=== PATIENT | female | born 1950 | race Caucasian/White ===

== ENCOUNTER 2017-02-12 13:18 | Emergency (ER) | payer MEDICARE ==
[~2017-02-12] VITALS: Ht 162.6 cm; Wt 63.8 kg
[~2017-02-12 13:18] MED LIST: ALBU18HF INH; ASPI325T4 PO; ATOR80TA PO; BENZ100C PO; BUSP10TA PO; CITA10TA8 PO; HYDR25TA6 PO; K-DUR PO; METO25TA35 PO; MONT10TA9 PO; POTASSIUM CHLORIDE PO; ZONI100C2 PO; ZONI50CA2 PO; [UNRECOGNIZED DRUG - OTHER] PO
[2017-02-12 14:26] VITALS: BP 105/55
== END 2017-02-12 14:28 | disposition home or self-care (01) ==
LOC: ED 14:22
DX: R56.9 Unspecified convulsions (principal); I12.9 Hypertensive chronic kidney disease with stage 1 through stage 4 chronic kidney disease, or unspecified chronic kidney disease; J44.9 Chronic obstructive pulmonary disease, unspecified; Z90.49 Acquired absence of other specified parts of digestive tract; I25.810 Atherosclerosis of coronary artery bypass graft(s) without angina pectoris; J45.909 Unspecified asthma, uncomplicated
CPT/HCPCS: 99283

== ENCOUNTER 2017-04-16 13:22 | Inpatient (IN) | payer MEDICARE ==
[~2017-04-16] VITALS: Ht 162.6 cm; Wt 65.3 kg
[2017-04-16] MEDS ORDERED: DONE5TAB14 PO (13:44)
[2017-04-16] MEDS ORDERED: LAMO25TA PO (13:44)
[2017-04-16] MEDS ORDERED: HYDR25TA6 PO (13:44)
[2017-04-16] MEDS ORDERED: BUSP10TA PO (13:44)
[2017-04-16] MEDS ORDERED: METO25TA35 PO (13:44)
[2017-04-16] MEDS ORDERED: DIPHENHYDRAMINE 50 MG/ML, 1ML ONE (13:51)
[2017-04-16] MEDS ORDERED: MORPHINE SULFATE 4 MG/ML, 1ML ONE (13:51)
[2017-04-16] MEDS ORDERED: DIPHENHYDRAMINE 50 MG/ML, 1ML IVPush ONE (14:00)
[2017-04-16] MEDS ORDERED: SODIUM CHLORIDE FLUSH 10ML SYR IVF ONE (14:00)
[2017-04-16] MEDS ORDERED: SODIUM CHLORIDE 0.9% 1,000ML IVBOLUS ONE (14:00)
[2017-04-16] MEDS: MORPHINE SULFATE 4 MG/ML, 1ML IVPush PRN ×3 (14:18→21:46)
[2017-04-16 14:21] LABS: BLOOD UREA NITROGEN 14 mg/dL (7-18)
[2017-04-16 14:26] LABS: ASPARTATE AMINO TRANSFERASE 17 U/L (15-37)
[2017-04-16 14:30] LABS: IS PT STATUS REG ER OR PRE ER? YES
[2017-04-16] MEDS ORDERED: OMNIPAQUE 350 MG/ML, 100ML BOTTLE ONE (16:08)
[2017-04-16] MEDS ORDERED: BISACODYL 10 MG SUPP PR PRN (16:30)
[2017-04-16] MEDS ORDERED: ONDANSETRON 2MG/ML, 2ML IVPush PRN (16:30)
[2017-04-16 20:00] VITALS: BP 95/59
[2017-04-16] MEDS: POTASSIUM CHLORIDE 20 MEQ in LACTATED RINGERS 1,000 ML IV SCH (21:46)
[2017-04-16] MEDS: DONEPEZIL 5 MG TABLET PO SCH (21:47)
[2017-04-16] MEDS: ATORVASTATIN 80 MG TABLET PO SCH (21:48)
[2017-04-16] MEDS: LAMOTRIGINE 25 MG TABLET PO SCH (21:48)
[2017-04-16] MEDS: ACETAMINOPHEN 325 MG TABLET PO PRN (22:08)
[2017-04-17 02:00] VITALS: BP 111/67
[2017-04-17 06:47] VITALS: BP 103/61
[2017-04-17] MEDS: POTASSIUM CHLORIDE 20 MEQ in LACTATED RINGERS 1,000 ML IV SCH (08:33)
[2017-04-17] MEDS: LAMOTRIGINE 25 MG TABLET PO SCH ×2 (08:33→20:37)
[2017-04-17] MEDS: CITALOPRAM 10 MG TABLET PO SCH (08:33)
[2017-04-17] MEDS: METOPROLOL TARTRATE 25 MG TABLET PO SCH (08:33)
[2017-04-17] MEDS: HYDROCHLOROTHIAZIDE 25 MG TABLET PO SCH (08:34)
[2017-04-17] MEDS: morphine SULFATE 10 MG/ML, 1ML IVPush PRN (12:42)
[2017-04-17 14:49] VITALS: BP 97/58
[2017-04-17 20:00] VITALS: BP 99/63
[2017-04-17] MEDS: MONTELUKAST 10 MG TABLET PO SCH (20:37)
[2017-04-17] MEDS: DONEPEZIL 5 MG TABLET PO SCH (20:37)
[2017-04-17] MEDS: ATORVASTATIN 80 MG TABLET PO SCH (20:37)
[2017-04-18 02:00] VITALS: BP 109/70
[2017-04-18 07:22] VITALS: BP 99/59
[2017-04-18] MEDS: CITALOPRAM 10 MG TABLET PO SCH (08:02)
[2017-04-18] MEDS: LAMOTRIGINE 25 MG TABLET PO SCH ×2 (08:02→19:51)
[2017-04-18] MEDS: METOPROLOL TARTRATE 25 MG TABLET PO SCH (08:02)
[2017-04-18] MEDS: HYDROCHLOROTHIAZIDE 25 MG TABLET PO SCH (08:02)
[2017-04-18] MEDS ORDERED: FENTANYL PF 100 MCG/2ML ONE ×4 (10:27→12:08)
[2017-04-18] MEDS ORDERED: PROPOFOL 10 MG/ML, 20ML ONE (10:33)
[2017-04-18] MEDS ORDERED: METOPROLOL 1 MG/ML, 5ML ONE (10:33)
[2017-04-18] MEDS ORDERED: CEFAZOLIN 1,000 MG ONE (10:33)
[2017-04-18] MEDS ORDERED: ONDANSETRON 2MG/ML, 2ML ONE (10:33)
[2017-04-18] MEDS ORDERED: MIDAZOLAM 1 MG/ML, 5ML IV PRN (11:00)
[2017-04-18] MEDS ORDERED: LABETALOL 5MG/ML, 20ML IV PRN (11:00)
[2017-04-18] MEDS ORDERED: OXYcodone 5 MG/5 ML ORAL.SOL UDC PO PRN (11:00)
[2017-04-18] MEDS ORDERED: ONDANSETRON 2MG/ML, 2ML IVPush PRN (11:00)
[2017-04-18] MEDS ORDERED: OXYcodone 5 MG/5 ML ORAL.SOL UDC ONE (11:32)
[2017-04-18] MEDS: FENTANYL PF 100 MCG/2ML IV PRN ×4 (11:35→12:16)
[2017-04-18] MEDS ORDERED: ACETAMINOPHEN 650 MG/20.3 ML UDC ONE (11:42)
[2017-04-18] MEDS ORDERED: HYDROmorphone 1 MG/ML, 1ML ONE (11:42)
[2017-04-18] MEDS: ACETAMINOPHEN 325 MG TABLET PO PRN (11:44)
[2017-04-18] MEDS: HYDROmorphone 1 MG/ML, 1ML IV PRN ×3 (11:48→12:10)
[2017-04-18 13:52] VITALS: BP 136/75
[2017-04-18] MEDS: morphine SULFATE 10 MG/ML, 1ML IVPush PRN (18:27)
[2017-04-18 19:09] VITALS: BP 117/71
[2017-04-18] MEDS: ATORVASTATIN 80 MG TABLET PO SCH (19:51)
[2017-04-18] MEDS: CEFAZOLIN PMX 1GM/50ML 50 ML IV SCH (19:51)
[2017-04-18] MEDS: DONEPEZIL 5 MG TABLET PO SCH (19:51)
[2017-04-18] MEDS: MONTELUKAST 10 MG TABLET PO SCH (19:51)
[2017-04-19 00:30] VITALS: BP 108/62
[2017-04-19] MEDS: morphine SULFATE 10 MG/ML, 1ML IVPush PRN ×3 (01:03→10:32)
[2017-04-19] MEDS: CEFAZOLIN PMX 1GM/50ML 50 ML IV SCH ×2 (03:51→12:30)
[2017-04-19] MEDS ORDERED: MORPHINE SULFATE 4 MG/ML, 1ML ONE (05:41)
[2017-04-19 06:55] VITALS: BP 115/66
[2017-04-19] MEDS: LAMOTRIGINE 25 MG TABLET PO SCH ×2 (08:46→20:51)
[2017-04-19] MEDS: DOCUSATE 100 MG CAPSULE PO SCH ×2 (08:46→20:51)
[2017-04-19] MEDS: HYDROCHLOROTHIAZIDE 25 MG TABLET PO SCH (08:47)
[2017-04-19] MEDS: CITALOPRAM 10 MG TABLET PO SCH (08:47)
[2017-04-19] MEDS: METOPROLOL TARTRATE 25 MG TABLET PO SCH (08:47)
[2017-04-19 12:45] VITALS: BP 103/61
[2017-04-19 18:46] VITALS: BP 110/64
[2017-04-19] MEDS: DONEPEZIL 5 MG TABLET PO SCH (20:51)
[2017-04-19] MEDS: ATORVASTATIN 80 MG TABLET PO SCH (20:52)
[2017-04-19] MEDS: MONTELUKAST 10 MG TABLET PO SCH (20:52)
[2017-04-19] MEDS ORDERED: ONDANSETRON 2MG/ML, 2ML IVPush PRN (22:30)
[2017-04-19] MEDS ORDERED: BISACODYL 10 MG SUPP PR PRN (22:30)
[2017-04-20 01:52] VITALS: BP 103/57
[2017-04-20 05:48] LABS: BLOOD UREA NITROGEN 8 mg/dL (7-18)
[2017-04-20 07:10] VITALS: BP 114/64
[2017-04-20] MEDS: DOCUSATE 100 MG CAPSULE PO SCH ×2 (08:45→19:53)
[2017-04-20] MEDS: LAMOTRIGINE 25 MG TABLET PO SCH ×2 (08:46→19:53)
[2017-04-20] MEDS: METOPROLOL TARTRATE 25 MG TABLET PO SCH (08:46)
[2017-04-20] MEDS: POTASSIUM CHLORIDE 20 MEQ TAB.ER.PRT PO SCH ×2 (08:46→16:45)
[2017-04-20] MEDS: HYDROCHLOROTHIAZIDE 25 MG TABLET PO SCH (08:46)
[2017-04-20] MEDS: CITALOPRAM 10 MG TABLET PO SCH (08:46)
[2017-04-20 13:07] VITALS: BP 103/63
[2017-04-20] MEDS ORDERED: MAGNESIUM CITRATE 300ML ORAL SOL PO ONE (13:30)
[2017-04-20] MEDS ORDERED: POLYETHYLENE GLYCOL 17 GM PACKET PO PRN (13:30)
[2017-04-20] MEDS ORDERED: MAGNESIUM CITRATE 300ML ORAL SOL PO PRN (14:30)
[2017-04-20 18:48] VITALS: BP 107/63
[2017-04-20] MEDS: MONTELUKAST 10 MG TABLET PO SCH (19:53)
[2017-04-20] MEDS: DONEPEZIL 5 MG TABLET PO SCH (19:53)
[2017-04-20] MEDS: ATORVASTATIN 80 MG TABLET PO SCH (19:53)
[2017-04-21 01:01] VITALS: BP 137/74
[2017-04-21 07:32] VITALS: BP 103/64
[2017-04-21] MEDS: CITALOPRAM 10 MG TABLET PO SCH (09:00)
[2017-04-21] MEDS: HYDROCHLOROTHIAZIDE 25 MG TABLET PO SCH (09:00)
[2017-04-21] MEDS: METOPROLOL TARTRATE 25 MG TABLET PO SCH (09:00)
[2017-04-21] MEDS: LAMOTRIGINE 25 MG TABLET PO SCH ×2 (09:00→21:35)
[2017-04-21] MEDS: DOCUSATE 100 MG CAPSULE PO SCH ×2 (09:00→21:36)
[2017-04-21 14:23] VITALS: BP 102/58
[2017-04-21 19:55] VITALS: BP 107/63
[2017-04-21] MEDS: ATORVASTATIN 80 MG TABLET PO SCH (21:00)
[2017-04-21] MEDS: DONEPEZIL 5 MG TABLET PO SCH (21:34)
[2017-04-21] MEDS: MONTELUKAST 10 MG TABLET PO SCH (21:35)
[2017-04-22 02:55] VITALS: BP 107/64
[2017-04-22 06:28] VITALS: BP 134/73
[2017-04-22 06:58] VITALS: BP 107/66
[2017-04-22] MEDS ORDERED: HYDR-3240 PO (07:38)
[2017-04-22] MEDS: CITALOPRAM 10 MG TABLET PO SCH (07:58)
[2017-04-22] MEDS: HYDROCHLOROTHIAZIDE 25 MG TABLET PO SCH (07:58)
[2017-04-22] MEDS: DOCUSATE 100 MG CAPSULE PO SCH (07:58)
[2017-04-22] MEDS: METOPROLOL TARTRATE 25 MG TABLET PO SCH (07:58)
[2017-04-22] MEDS: LAMOTRIGINE 25 MG TABLET PO SCH (07:58)
[2017-04-22 14:47] VITALS: BP 93/58
== END 2017-04-22 15:46 | disposition home health service (06) | DRG 515 ==
LOC: ED 14:23 → EDIP 16:20 → 4EST 18:19 → DCLOUNGE 04-22 15:30
PROC: 0QSD04Z Reposition Right Patella with Internal Fixation Device, Open Approach (ICD-10-PCS; principal; 2017-04-16)
PROC: 0T9B70Z Drainage of Bladder with Drainage Device, Via Natural or Artificial Opening (ICD-10-PCS; 2017-04-16)
DX: S82.031A Displaced transverse fracture of right patella, initial encounter for closed fracture (principal); G93.40 Encephalopathy, unspecified; G40.909 Epilepsy, unspecified, not intractable, without status epilepticus; E78.5 Hyperlipidemia, unspecified; E87.6 Hypokalemia; D64.9 Anemia, unspecified; E78.00 Pure hypercholesterolemia, unspecified; I12.9 Hypertensive chronic kidney disease with stage 1 through stage 4 chronic kidney disease, or unspecified chronic kidney disease; I25.10 Atherosclerotic heart disease of native coronary artery without angina pectoris; J45.909 Unspecified asthma, uncomplicated; N18.3 Chronic kidney disease, stage 3 (moderate); W19.XXXA Unspecified fall, initial encounter; Z66 Do not resuscitate; F32.9 Major depressive disorder, single episode, unspecified; F41.9 Anxiety disorder, unspecified; F45.8 Other somatoform disorders; G20 Parkinson's disease; F02.80 Dementia in other diseases classified elsewhere, unspecified severity, without behavioral disturbance, psychotic disturbance, mood disturbance, and anxiety; R01.1 Cardiac murmur, unspecified; Z90.49 Acquired absence of other specified parts of digestive tract; Z81.1 Family history of alcohol abuse and dependence; Z79.82 Long term (current) use of aspirin; I25.2 Old myocardial infarction; Z83.3 Family history of diabetes mellitus; Y93.89 Activity, other specified; Y92.89 Other specified places as the place of occurrence of the external cause; Z91.81 History of falling; Z95.1 Presence of aortocoronary bypass graft; Z79.899 Other long term (current) drug therapy; Z91.048 Other nonmedicinal substance allergy status; Z91.040 Latex allergy status; Z88.8 Allergy status to other drugs, medicaments and biological substances
CPT/HCPCS: 36415; 71010; 71275; 76000; 80048; 80053; 81003; 82306; 82533; 83880; 84443; 84484; 85025; 85379; 85610; 85730; 93005; 93306; 93880; 95819; 96361; 96374; C1713; J0690; J1170; J2405; J2704; J3010; J3480; Q9967; J1200; J2270; J7030; J7120

== ENCOUNTER 2017-05-12 00:12 | Emergency (ER) | payer MEDICARE ==
[~2017-05-12] VITALS: Ht 162.6 cm; Wt 56.0 kg
[~2017-05-12 00:12] MED LIST changes: +DONE5TAB14 PO; +HYDR-3240 PO; +LAMO25TA PO
[2017-05-12] MEDS ORDERED: SODIUM CHLORIDE 0.9%, 500ML IVBOLUS ONE (01:00)
[2017-05-12 01:34] LABS: BLOOD UREA NITROGEN 20 mg/dL (7-18)
[2017-05-12 01:39] LABS: IS PT STATUS REG ER OR PRE ER? YES
[2017-05-12] MEDS ORDERED: COLE500G2 PO (01:55)
[2017-05-12 03:30] VITALS: BP 123/77
== END 2017-05-12 03:32 | disposition home or self-care (01) ==
LOC: ED 00:50
DX: R07.89 Other chest pain (principal); I12.9 Hypertensive chronic kidney disease with stage 1 through stage 4 chronic kidney disease, or unspecified chronic kidney disease; N18.9 Chronic kidney disease, unspecified; J44.9 Chronic obstructive pulmonary disease, unspecified; I25.10 Atherosclerotic heart disease of native coronary artery without angina pectoris; G40.909 Epilepsy, unspecified, not intractable, without status epilepticus; I25.2 Old myocardial infarction; Z90.49 Acquired absence of other specified parts of digestive tract; Z95.1 Presence of aortocoronary bypass graft
CPT/HCPCS: 36415; 71275; 80048; 82040; 84484; 85025; 85379; 93005; 99285

== ENCOUNTER 2017-05-13 10:12 | Observation (INO) | payer MEDICARE ==
[~2017-05-13] VITALS: Ht 162.6 cm; Wt 56.0 kg
[~2017-05-13 10:12] MED LIST changes: +COLE500G2 PO
[2017-05-13 11:59] LABS: DAU SCREEN DISCLAIMER
[2017-05-13 14:22] LABS: ACETAMINOPHEN 2 mcg/mL (10-30); BLOOD UREA NITROGEN 11 mg/dL (7-18)
[2017-05-13 14:58] VITALS: BP 92/62
[2017-05-13] MEDS ORDERED: ENOXAPARIN 40 MG/0.4 ML SQ SCH (16:00)
[2017-05-13] MEDS ORDERED: DOCUSATE 100 MG CAPSULE PO PRN (16:00)
[2017-05-13] MEDS ORDERED: BISACODYL 10 MG SUPP PR PRN (16:00)
[2017-05-13] MEDS ORDERED: OLANZAPINE 5 MG TABLET PO ONE (16:00)
[2017-05-13] MEDS ORDERED: ACETAMINOPHEN 325 MG TABLET PO PRN (16:00)
[2017-05-13] MEDS ORDERED: POLYETHYLENE GLYCOL 17 GM PACKET PO PRN (16:00)
[2017-05-13] MEDS ORDERED: BUSPIRONE 10 MG TABLET PO SCH (16:00)
[2017-05-13] MEDS ORDERED: LORazepam 1MG TABLET PO PRN (16:00)
[2017-05-13] MEDS ORDERED: ATORVASTATIN 80 MG TABLET PO SCH (21:00)
[2017-05-14] MEDS ORDERED: HYDROCHLOROTHIAZIDE 25 MG TABLET PO SCH (09:00)
[2017-05-14] MEDS ORDERED: ASPIRIN 325 MG TABLET PO SCH (09:00)
[2017-05-14] MEDS ORDERED: METOPROLOL TARTRATE 25 MG TABLET PO SCH (09:00)
[2017-05-14] MEDS ORDERED: MONTELUKAST 10 MG TABLET PO SCH (09:00)
[2017-05-14] MEDS ORDERED: OLANZAPINE 5 MG TABLET PO SCH (09:00)
== END 2017-05-13 19:00 ==
LOC: ED 10:31 → INTOOBSV 14:34 → EDIP 14:34 → 3E 16:28
PROVIDERS: ADMIT Internal Medicine
DX: F30.9 Manic episode, unspecified (principal); F31.9 Bipolar disorder, unspecified; I13.10 Hypertensive heart and chronic kidney disease without heart failure, with stage 1 through stage 4 chronic kidney disease, or unspecified chronic kidney disease; N18.9 Chronic kidney disease, unspecified; G40.909 Epilepsy, unspecified, not intractable, without status epilepticus; J44.9 Chronic obstructive pulmonary disease, unspecified; I25.2 Old myocardial infarction
CPT/HCPCS: 36415; 80048; 80307; 80329; 82040; 84439; 84443; 85025; 96372; 99285; G0378; J1650; G0480

== ENCOUNTER 2017-05-22 01:51 | Inpatient (IN) | payer MEDICARE ==
[~2017-05-22] VITALS: Ht 162.6 cm; Wt 60.3 kg
[2017-05-22] MEDS ORDERED: POTA10TA31 PO (02:38)
[2017-05-22] MEDS ORDERED: CHOL500014 PO (02:38)
[2017-05-22] MEDS ORDERED: LAMO25TA PO (02:39)
[2017-05-22 03:07] LABS: BLOOD UREA NITROGEN 15 mg/dL (7-18)
[2017-05-22 03:12] LABS: IS PT STATUS REG ER OR PRE ER? YES
[2017-05-22] MEDS ORDERED: LORazepam 2 MG/ML, 1ML ONE (04:11)
[2017-05-22] MEDS ORDERED: SODIUM CHLORIDE 0.9% 1,000 ML IV ONE (04:21)
[2017-05-22] MEDS ORDERED: LEVETIRACETAM 1,000 MG in SODIUM CHLORIDE 0.9% 100 ML IV ONE (04:30)
[2017-05-22] MEDS ORDERED: SODIUM CHLORIDE 0.9% 1,000ML IVBOLUS ONE (04:30)
[2017-05-22] MEDS ORDERED: ONDANSETRON 2MG/ML, 2ML IVPush PRN ×2 (04:30→05:30)
[2017-05-22] MEDS ORDERED: LORazepam 2 MG/ML, 1ML IVPush ONE (04:30)
[2017-05-22] MEDS ORDERED: ACETAMINOPHEN 325 MG TABLET PO PRN (05:30)
[2017-05-22] MEDS ORDERED: POLYETHYLENE GLYCOL 17 GM PACKET PO PRN (05:30)
[2017-05-22] MEDS ORDERED: LEVETIRACETAM 500 MG in SODIUM CHLORIDE 0.9% 100 ML IV SCH (05:30)
[2017-05-22] MEDS ORDERED: hydrALAzine 20 MG/ML, 1ML IVPush PRN (05:30)
[2017-05-22] MEDS ORDERED: DOCUSATE 100 MG CAPSULE PO PRN (05:30)
[2017-05-22] MEDS ORDERED: BISACODYL 10 MG SUPP PR PRN (05:30)
[2017-05-22] MEDS ORDERED: LORazepam 2 MG/ML, 1ML IVPush PRN (05:30)
[2017-05-22 05:56] VITALS: BP 168/94
[2017-05-22] MEDS ORDERED: ALBUTEROL SULFATE 2.5 MG/3 ML NPPB PRN (06:00)
[2017-05-22] MEDS: ENOXAPARIN 40 MG/0.4 ML SQ SCH (06:17)
[2017-05-22] MEDS: SODIUM CHLORIDE 0.9% 1,000 ML IV SCH ×2 (06:17→18:46)
[2017-05-22 06:55] VITALS: BP 135/78
[2017-05-22] MEDS ORDERED: GADOBUTROL 10 MMOL/10 ML PFS ONE (09:11)
[2017-05-22] MEDS: MONTELUKAST 10 MG TABLET PO SCH (11:17)
[2017-05-22] MEDS: ASPIRIN 325 MG TABLET PO SCH (11:17)
[2017-05-22] MEDS: LAMOTRIGINE 100 MG TABLET PO SCH ×2 (11:18→21:06)
[2017-05-22] MEDS: METOPROLOL TARTRATE 25 MG TABLET PO SCH (11:18)
[2017-05-22] MEDS: HYDROCHLOROTHIAZIDE 25 MG TABLET PO SCH (11:19)
[2017-05-22 13:43] VITALS: BP 112/71
[2017-05-22 18:33] VITALS: BP 101/63
[2017-05-22] MEDS ORDERED: ATORVASTATIN 80 MG TABLET PO SCH (21:00)
[2017-05-23 01:12] VITALS: BP 119/72
[2017-05-23] MEDS: ENOXAPARIN 40 MG/0.4 ML SQ SCH (05:33)
[2017-05-23 07:13] VITALS: BP 98/62
[2017-05-23] MEDS: HYDROCHLOROTHIAZIDE 25 MG TABLET PO SCH (09:39)
[2017-05-23] MEDS: LAMOTRIGINE 100 MG TABLET PO SCH (09:39)
[2017-05-23] MEDS: METOPROLOL TARTRATE 25 MG TABLET PO SCH (09:39)
[2017-05-23] MEDS: ASPIRIN 325 MG TABLET PO SCH (09:39)
[2017-05-23] MEDS: MONTELUKAST 10 MG TABLET PO SCH (09:39)
[2017-05-23] MEDS ORDERED: LAMO25TA PO (11:00)
== END 2017-05-23 13:52 | disposition home or self-care (01) | DRG 100 ==
LOC: ED 04:18 → UNDOADMIN 04:21 → EDIP 04:21 → 4EST 04:21 → EDIP 05:45 → 4EST 05:45 → DCLOUNGE 05-23 12:44 → UNDODISIN 05-23 12:44
PROVIDERS: ADMIT Internal Medicine; ATTEND Internal Medicine
DX: G40.209 Localization-related (focal) (partial) symptomatic epilepsy and epileptic syndromes with complex partial seizures, not intractable, without status epilepticus (principal); G93.40 Encephalopathy, unspecified; F31.9 Bipolar disorder, unspecified; F41.1 Generalized anxiety disorder; G89.11 Acute pain due to trauma; I12.9 Hypertensive chronic kidney disease with stage 1 through stage 4 chronic kidney disease, or unspecified chronic kidney disease; I25.10 Atherosclerotic heart disease of native coronary artery without angina pectoris; I25.2 Old myocardial infarction; N18.2 Chronic kidney disease, stage 2 (mild); W19.XXXA Unspecified fall, initial encounter; S50.312A Abrasion of left elbow, initial encounter; G89.29 Other chronic pain; J44.9 Chronic obstructive pulmonary disease, unspecified; R45.86 Emotional lability; Z90.49 Acquired absence of other specified parts of digestive tract; Z95.1 Presence of aortocoronary bypass graft; Z79.82 Long term (current) use of aspirin; Z79.899 Other long term (current) drug therapy; Z81.1 Family history of alcohol abuse and dependence; Z83.3 Family history of diabetes mellitus; Z82.5 Family history of asthma and other chronic lower respiratory diseases; Z82.49 Family history of ischemic heart disease and other diseases of the circulatory system; Y93.89 Activity, other specified; Y92.89 Other specified places as the place of occurrence of the external cause; Y99.8 Other external cause status
CPT/HCPCS: 36415; 70553; 80048; 82040; 84484; 85025; 93005; 96365; 96375; A9585; J1650; J1953; 92523-GN; J2060; J7030

== ENCOUNTER 2017-07-07 16:49 | Inpatient (IN) | payer MEDICARE ==
[~2017-07-07] VITALS: Ht 162.6 cm; Wt 51.0 kg
[~2017-07-07 16:49] MED LIST changes: +ASPI325T17 PO; -ASPI325T4 PO; +CHOL500045 PO; +POTA10TA31 PO
[2017-07-07] MEDS ORDERED: SODIUM CHLORIDE 0.9% 1,000ML IVBOLUS ONE (17:30)
[2017-07-07] MEDS ORDERED: SODIUM CHLORIDE FLUSH 10ML SYR IVF ONE (17:30)
[2017-07-07 17:55] LABS: HEMATOCRIT 40.4 % (34.6-47.8); HEMOGLOBIN 13.2 g/dL (11.7-16.4); WHITE BLOOD COUNT 8.7 x10^3/uL (3.4-10)
[2017-07-07 18:07] LABS: ASPARTATE AMINO TRANSFERASE 21 U/L (15-37); BLOOD UREA NITROGEN 13 mg/dL (7-18)
[2017-07-07 18:18] LABS: ACETAMINOPHEN < 2 mcg/mL (10-30); IS PT STATUS REG ER OR PRE ER? YES
[2017-07-07] MEDS ORDERED: SODIUM CHLORIDE 0.9%, 500ML IVBOLUS ONE (19:00)
[2017-07-07 19:35] LABS: DAU SCREEN DISCLAIMER
[2017-07-07] MEDS ORDERED: ATORVASTATIN 80 MG TABLET PO SCH (21:30)
[2017-07-07] MEDS ORDERED: BUSPIRONE 10 MG TABLET PO SCH (21:30)
[2017-07-07] MEDS ORDERED: LAMOTRIGINE 25 MG TABLET PO SCH (21:30)
[2017-07-07] MEDS ORDERED: BUSPAR MC SCH (22:30)
[2017-07-07] MEDS ORDERED: ALBUTEROL SULFATE 2.5 MG/3 ML NPPB PRN (22:30)
[2017-07-07] MEDS ORDERED: ENOXAPARIN 40 MG/0.4 ML SQ SCH (23:30)
[2017-07-07] MEDS ORDERED: DOCUSATE 100 MG CAPSULE PO PRN (23:30)
[2017-07-07] MEDS ORDERED: ENALAPRILAT 1.25 MG/ML, 2ML IVPush PRN (23:30)
[2017-07-07] MEDS ORDERED: ACETAMINOPHEN 325 MG TABLET PO PRN (23:30)
[2017-07-07] MEDS ORDERED: LORazepam 2 MG/ML, 1ML IVPush PRN (23:30)
[2017-07-07] MEDS ORDERED: ONDANSETRON ODT 4 MG PO PRN (23:30)
[2017-07-08 00:27] VITALS: BP 133/71
[2017-07-08 05:00] VITALS: BP 115/65
[2017-07-08 05:32] LABS: HEMATOCRIT 37.9 % (34.6-47.8); HEMOGLOBIN 12.5 g/dL (11.7-16.4); WHITE BLOOD COUNT 8.4 x10^3/uL (3.4-10)
[2017-07-08 05:33] LABS: BLOOD UREA NITROGEN 9 mg/dL (7-18)
[2017-07-08 07:31] VITALS: BP 97/52
[2017-07-08] MEDS ORDERED: CITALOPRAM 10 MG TABLET PO SCH (09:00)
[2017-07-08] MEDS ORDERED: LAMOTRIGINE 100 MG TABLET PO SCH (09:00)
[2017-07-08] MEDS ORDERED: ASPIRIN 325 MG TABLET PO SCH (09:00)
[2017-07-08] MEDS ORDERED: HYDROCHLOROTHIAZIDE 25 MG TABLET PO SCH (09:00)
[2017-07-08] MEDS ORDERED: MONTELUKAST 10 MG TABLET PO SCH (09:00)
[2017-07-08] MEDS ORDERED: CHOLECALCIFEROL 1,000 UNIT TABLET PO SCH (09:00)
[2017-07-08] MEDS ORDERED: METOPROLOL TARTRATE 25 MG TABLET PO SCH (09:00)
[2017-07-08] MEDS ORDERED: POTASSIUM CHLORIDE 10 MEQ TABLET.ER PO SCH (09:00)
[2017-07-08] MEDS ORDERED: LAMO100T5 PO (10:55)
[2017-07-08] MEDS ORDERED: BUSPIRONE 10 MG TABLET PO PRN (21:00)
[2017-07-08] MEDS ORDERED: QUETIAPINE 100MG TABLET PO SCH (21:00)
== END 2017-07-08 13:12 | disposition home or self-care (01) | DRG 100 ==
LOC: ED 19:29 → EDIP 19:30 → 4WST 22:01 → DCLOUNGE 07-08 12:45
DX: G40.909 Epilepsy, unspecified, not intractable, without status epilepticus (principal); G93.40 Encephalopathy, unspecified; F03.90 Unspecified dementia, unspecified severity, without behavioral disturbance, psychotic disturbance, mood disturbance, and anxiety; G20 Parkinson's disease; J44.9 Chronic obstructive pulmonary disease, unspecified; N18.3 Chronic kidney disease, stage 3 (moderate); I12.9 Hypertensive chronic kidney disease with stage 1 through stage 4 chronic kidney disease, or unspecified chronic kidney disease; E78.5 Hyperlipidemia, unspecified; S50.312A Abrasion of left elbow, initial encounter; F31.9 Bipolar disorder, unspecified; F41.9 Anxiety disorder, unspecified; I25.10 Atherosclerotic heart disease of native coronary artery without angina pectoris; S00.81XA Abrasion of other part of head, initial encounter; X58.XXXA Exposure to other specified factors, initial encounter; Y93.89 Activity, other specified; Y92.89 Other specified places as the place of occurrence of the external cause; Y99.8 Other external cause status; I25.2 Old myocardial infarction; Z83.3 Family history of diabetes mellitus; Z95.1 Presence of aortocoronary bypass graft; Z90.49 Acquired absence of other specified parts of digestive tract
CPT/HCPCS: 36415; 70450; 71010; 80048; 80053; 80307; 80329; 81003; 82140; 82550; 83605; 83735; 84100; 84439; 84443; 84484; 85025; 85610; 85730; 87040; 93005; 96360; 96361; J1650; G0480; J2060; J7030; J7040

== ENCOUNTER 2018-09-01 12:45 | Inpatient (IN) | payer MEDICARE ==
[~2018-09-01] VITALS: Ht 162.6 cm; Wt 64.0 kg
[~2018-09-01 12:45] MED LIST changes: +LAMO100T5 PO
[2018-09-01] MEDS ORDERED: TRAZ-137 PO (13:24)
[2018-09-01] MEDS ORDERED: MORPHINE SULFATE 4 MG/ML, 1ML IVPush PRN (13:30)
[2018-09-01 13:34] LABS: BASOPHILS % (AUTO) 2 % (0-1); EOSINOPHILS # (AUTO) 0.14 x10^3/uL (0-0.4); EOSINOPHILS % (AUTO) 2 % (1-7); LYMPHOCYTES # (AUTO) 2.31 x10^3/uL (1-3.4); LYMPHOCYTES % (AUTO) 35 % (22-44); MD NO; MEAN CORPUSCULAR HEMOGLOBIN 32.6 pg (27.0-34.8); MEAN CORPUSCULAR HGB CONC 33.7 g/dL (32.4-35.8); MEAN CORPUSCULAR VOLUME 96.8 fL (80-100); MONOCYTES # (AUTO) 0.51 x10^3/uL (0.2-0.8); MONOCYTES % (AUTO) 8 % (2-9); NEUTROPHILS % (AUTO) 53 % (42-75); PLATELET COUNT 257 x10^3/uL (130-400); RED BLOOD COUNT 4.51 x10^6/uL (3.82-5.3); RED CELL DISTRIBUTION WIDTH 14.4 % (9.6-15.2)
[2018-09-01] MEDS ORDERED: NITROGLYCERIN SINGLE TAB 0.4 MG SL ONE (13:38)
[2018-09-01] MEDS ORDERED: MORPHINE SULFATE 4 MG/ML, 1ML ONE (13:39)
[2018-09-01] MEDS: NITROGLYCERIN SINGLE TAB 0.4 MG SL PRN ×2 (13:42→13:47)
[2018-09-01 13:44] LABS: ALANINE AMINOTRANSFERASE 35 U/L (12-78); ALBUMIN 3.8 g/dL (3.4-5.0); ANION GAP 8 mmol/L (5-15); CALCIUM 9.7 mg/dL (8.5-10.1); CHLORIDE 106 mmol/L (98-107); CREATININE 0.96 mg/dL (0.55-1.02)
[2018-09-01 13:46] LABS: INTERNATIONAL NORMALIZED RATIO 0.98 (0.93-1.1); PROTHROMBIN TIME 10.1 Seconds (9.6-11.5)
[2018-09-01 13:49] LABS: ALKALINE PHOSPHATASE 109 U/L (45-117); BILIRUBIN,TOTAL 0.8 mg/dL (0.2-1.0); TOTAL PROTEIN 7.2 g/dL (6.4-8.2); TROPONIN I < 0.015 ng/mL (0.000-0.045)
[2018-09-01] MEDS ORDERED: TRAZ-136 PO (14:37)
[2018-09-01] MEDS ORDERED: OMNIPAQUE 350 MG/ML, 100ML BOTTLE ONE (15:22)
[2018-09-01] MEDS ORDERED: KETOROLAC 30 MG/1 ML IV PRN (16:00)
[2018-09-01] MEDS ORDERED: ACETAMINOPHEN 325 MG TABLET PO PRN (16:00)
[2018-09-01] MEDS ORDERED: morphine SULFATE 10 MG/ML, 1ML IVPush PRN (16:00)
[2018-09-01] MEDS ORDERED: ONDANSETRON ODT 4 MG PO PRN (16:00)
[2018-09-01] MEDS ORDERED: ONDANSETRON 2MG/ML, 2ML IVPush PRN (16:00)
[2018-09-01] MEDS ORDERED: BUSPIRONE 10 MG TABLET PO SCH (16:30)
[2018-09-01] MEDS ORDERED: TEMPLATE NON-FORMULARY MED. (Albuterol Sulfate (Ventolin Hfa) 2 PUFF(S)) INH PRN (16:30)
[2018-09-01 17:10] VITALS: BP 145/52
[2018-09-01] MEDS: ENOXAPARIN 40 MG/0.4 ML SQ SCH (17:54)
[2018-09-01 18:21] LABS: TROPONIN I < 0.015 ng/mL (0.000-0.045)
[2018-09-01 20:18] VITALS: BP 97/59
[2018-09-01] MEDS ORDERED: TRAZODONE 50MG TABLET PO SCH (21:00)
[2018-09-01] MEDS ORDERED: ATORVASTATIN 80 MG TABLET PO SCH (21:00)
[2018-09-01] MEDS: LAMOTRIGINE 100 MG TABLET PO SCH (21:19)
[2018-09-02 00:34] LABS: TROPONIN I < 0.015 ng/mL (0.000-0.045)
[2018-09-02 01:30] VITALS: BP 106/69
[2018-09-02 05:38] LABS: BASOPHILS # (AUTO) 0.06 x10^3/uL (0-0.1); BASOPHILS % (AUTO) 1 % (0-1); EOSINOPHILS % (AUTO) 3 % (1-7); LYMPHOCYTES # (AUTO) 2.75 x10^3/uL (1-3.4); LYMPHOCYTES % (AUTO) 40 % (22-44); MD NO; MEAN CORPUSCULAR HEMOGLOBIN 33.5 pg (27.0-34.8); MEAN CORPUSCULAR HGB CONC 34.4 g/dL (32.4-35.8); MEAN CORPUSCULAR VOLUME 97.4 fL (80-100); MONOCYTES # (AUTO) 0.59 x10^3/uL (0.2-0.8); MONOCYTES % (AUTO) 9 % (2-9); NEUTROPHILS # (AUTO) 3.37 x10^3/uL (1.8-6.8); NEUTROPHILS % (AUTO) 48 % (42-75); PLATELET COUNT 236 x10^3/uL (130-400); RED BLOOD COUNT 4.36 x10^6/uL (3.82-5.3)
[2018-09-02 05:48] LABS: ALBUMIN 3.6 g/dL (3.4-5.0); ANION GAP 6 mmol/L (5-15); CALCIUM 9.1 mg/dL (8.5-10.1); CHLORIDE 104 mmol/L (98-107); CHOLESTEROL, TOTAL 166 mg/dL (140-239)
[2018-09-02 05:51] LABS: ALANINE AMINOTRANSFERASE 31 U/L (12-78); ALKALINE PHOSPHATASE 100 U/L (45-117); BILIRUBIN,TOTAL 0.5 mg/dL (0.2-1.0); CHOL/HDL RATIO 4.5; CREATININE 1.02 mg/dL (0.55-1.02); HDL CHOL % 22 % (28-40); HDL CHOLESTEROL (DIRECT) 37 mg/dL (40-60); LDL CHOLESTEROL,CALCULATED 71 mg/dL (54-169); LDL/HDL RATIO 1.9 (0.5-3.0); TOTAL PROTEIN 6.5 g/dL (6.4-8.2); TRIGLYCERIDES 290 mg/dL (50-200); VLDL CHOLESTEROL 58 mg/dL (0-25)
[2018-09-02 07:29] VITALS: BP 104/67
[2018-09-02] MEDS ORDERED: REGADENOSON 0.4 MG/5 ML SYRINGE ONE (07:47)
[2018-09-02] MEDS ORDERED: MONTELUKAST 10 MG TABLET PO SCH (09:00)
[2018-09-02] MEDS ORDERED: CHOLECALCIFEROL 5,000u TAB PO SCH (09:00)
[2018-09-02] MEDS ORDERED: ASPIRIN 325 MG TABLET PO SCH (09:00)
[2018-09-02] MEDS ORDERED: POTASSIUM CHLORIDE 10 MEQ TABLET.ER PO SCH (09:00)
[2018-09-02] MEDS ORDERED: HYDROCHLOROTHIAZIDE 25 MG TABLET PO SCH (09:00)
[2018-09-02] MEDS ORDERED: CITALOPRAM 10 MG TABLET PO SCH (09:00)
[2018-09-02] MEDS ORDERED: METOPROLOL TARTRATE 25 MG TABLET PO SCH (09:00)
[2018-09-02] MEDS: LAMOTRIGINE 100 MG TABLET PO SCH (11:15)
[2018-09-02 12:45] VITALS: BP 112/73
[2018-09-02] MEDS: ENOXAPARIN 40 MG/0.4 ML SQ SCH (15:26)
== END 2018-09-02 18:12 | disposition home or self-care (01) | DRG 303 ==
LOC: ED 13:00 → EDIP 15:32 → 5SO 16:52
PROVIDERS: ADMIT Internal Medicine; ATTEND Internal Medicine
DX: I25.10 Atherosclerotic heart disease of native coronary artery without angina pectoris (principal); I12.9 Hypertensive chronic kidney disease with stage 1 through stage 4 chronic kidney disease, or unspecified chronic kidney disease; F31.9 Bipolar disorder, unspecified; N18.3 Chronic kidney disease, stage 3 (moderate); E78.5 Hyperlipidemia, unspecified; J44.9 Chronic obstructive pulmonary disease, unspecified; G40.909 Epilepsy, unspecified, not intractable, without status epilepticus; I25.2 Old myocardial infarction; Z95.1 Presence of aortocoronary bypass graft; Z90.49 Acquired absence of other specified parts of digestive tract; Z87.81 Personal history of (healed) traumatic fracture; Z79.82 Long term (current) use of aspirin; Z79.899 Other long term (current) drug therapy; Z91.040 Latex allergy status
CPT/HCPCS: 36415; 71045; 71275; 78452; 80053; 80061; 83880; 84484; 85025; 85610; 85730; 93005; 93017; 96374; 99285; G0378; J1650; J2785; Q9967; A9502; C9898

== ENCOUNTER 2019-09-11 20:58 | Inpatient (IN) | payer MEDICARE ==
[~2019-09-11] VITALS: Ht 162.6 cm; Wt 67.6 kg
[~2019-09-11 20:58] MED LIST changes: -LAMO25TA PO; +LAMO25TA9 PO; +TRAZ-137 PO; +TRAZ50TA66 PO
--- NOTE | 2019-09-11 21:00 | NUR ---
69YO F PT BIB EMS FROM HOME. PT REPORTS CP AND ALL OVER BODY ACHES STARTING LAST NIGHT. PT REPORTS CP WORSE WITH MOVEMENT. PT CONNECTED TO ALL MONITORING AT THIS TIME VSSDEA CALL LIGHT WITHIN REACH.
[2019-09-11] MEDS ORDERED: ASPIRIN 81 MG TABLET CHEW PO ONE (21:30)
[2019-09-11 21:32] LABS: BASOPHILS # (AUTO) 0.02 x10^3/uL (0-0.1); BASOPHILS % (AUTO) 0 % (0-1); EOSINOPHILS # (AUTO) 0.02 x10^3/uL (0-0.4); EOSINOPHILS % (AUTO) 0 % (1-7); LYMPHOCYTES # (AUTO) 1.53 x10^3/uL (1-3.4); LYMPHOCYTES % (AUTO) 10 % (22-44); MD NO; MEAN CORPUSCULAR VOLUME 96.9 fL (80-100); MEAN PLATELET VOLUME 7.6 fL (7.4-10.4); MONOCYTES # (AUTO) 0.51 x10^3/uL (0.2-0.8); MONOCYTES % (AUTO) 3 % (2-9); NEUTROPHILS % (AUTO) 87 % (42-75); PLATELET COUNT 235 x10^3/uL (130-400); RED BLOOD COUNT 4.53 x10^6/uL (3.82-5.3); RED CELL DISTRIBUTION WIDTH 14.4 % (9.6-15.2)
--- NOTE | 2019-09-11 21:34 | NUR ---
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 HOLD MED PER MD ORDER
[2019-09-11 21:44] LABS: ALBUMIN 3.9 g/dL (3.4-5.0); ANION GAP 9 mmol/L (5-15); CALCIUM 9.4 mg/dL (8.5-10.1); CHLORIDE 107 mmol/L (98-107); CREATININE 0.93 mg/dL (0.55-1.02)
[2019-09-11 21:48] LABS: TROPONIN I < 0.015 ng/mL (0.000-0.045)
--- NOTE | 2019-09-11 22:10 | NUR ---
pt resting on elis linares at bedside.
--- NOTE | 2019-09-11 22:11 | NUR ---
ALL RESULTS BACK AT THIS TIME CHART UP FOR RECHECK
--- NOTE | 2019-09-11 22:28 | NUR ---
IV STARTED, MD AT BEDSIDE TO DISCUSS ADMIT WITH PT AND FAMILY
[2019-09-11] MEDS ORDERED: ATOR40TA78 PO (22:32)
[2019-09-11] MEDS ORDERED: ONDANSETRON 2MG/ML, 2ML IVPush PRN (23:00)
[2019-09-11] MEDS ORDERED: MORPHINE SULFATE 4 MG/ML, 1ML IVPush PRN (23:00)
--- NOTE | 2019-09-11 23:00 | NUR ---
REPORT CALLED TO ASHELY LUCERO ALL QUESTIONS ADDRESSED PT READY FOR TRANSPORT
[2019-09-12] MEDS ORDERED: NITROGLYCERIN 0.4 MG BOTTLE (25 TABS) SL PRN
[2019-09-12] MEDS ORDERED: ACETAMINOPHEN 325 MG TABLET PO PRN
[2019-09-12] MEDS ORDERED: morphine SULFATE 10 MG/ML, 1ML IVPush PRN
[2019-09-12] MEDS ORDERED: hydrALAzine 20 MG/ML, 1ML IVPush PRN
[2019-09-12] MEDS ORDERED: ONDANSETRON 2MG/ML, 2ML IVPush PRN
[2019-09-12] MEDS ORDERED: BUSPIRONE 10 MG TABLET PO PRN
[2019-09-12 00:02] LABS: RAPID INFLUENZA A Negative (Negative); RAPID INFLUENZA B Negative (Negative)
[2019-09-12] MEDS: CITALOPRAM 10 MG TABLET PO SCH ×3 (00:28→21:00)
[2019-09-12] MEDS: TRAZODONE 50MG TABLET PO SCH ×2 (00:28→21:00)
[2019-09-12] MEDS: LAMOTRIGINE 100 MG TABLET PO SCH ×3 (00:29→21:01)
[2019-09-12] MEDS: ATORVASTATIN 40 MG TABLET PO SCH ×2 (00:29→21:01)
[2019-09-12] MEDS: HEPARIN 5,000 UNITS/ML, 1ML SQ SCH ×4 (00:29→23:45)
[2019-09-12 00:33] LABS: BILIRUBIN, DIRECT 0.2 mg/dL (0.1-0.2)
[2019-09-12 00:42] LABS: BILIRUBIN,INDIRECT 0.6 mg/dL (0.0-2.0); BILIRUBIN,TOTAL 0.8 mg/dL (0.2-1.0); TOTAL PROTEIN 7.1 g/dL (6.4-8.2)
[2019-09-12 00:44] VITALS: BP 134/68
[2019-09-12] MEDS ORDERED: PANTOPROZOLE 40MG TABLET PO ONE (02:00)
[2019-09-12] MEDS ORDERED: CALCIUM CARBONATE 500 MG TAB.CHEW PO ONE (02:00)
[2019-09-12] MEDS ORDERED: CALCIUM CARBONATE 500 MG TAB.CHEW ONE (02:13)
[2019-09-12] MEDS ORDERED: PANTOPROZOLE 40MG TABLET ONE (02:13)
[2019-09-12 02:17] VITALS: BP 134/68
[2019-09-12 03:18] LABS: BASOPHILS # (AUTO) 0.15 x10^3/uL (0-0.1); BASOPHILS % (AUTO) 1 % (0-1); EOSINOPHILS # (AUTO) 0.07 x10^3/uL (0-0.4); EOSINOPHILS % (AUTO) 0 % (1-7); LYMPHOCYTES % (AUTO) 11 % (22-44); MD NO; MEAN CORPUSCULAR HEMOGLOBIN 33.1 pg (27.0-34.8); MEAN CORPUSCULAR HGB CONC 33.8 g/dL (32.4-35.8); MEAN CORPUSCULAR VOLUME 97.8 fL (80-100); MEAN PLATELET VOLUME 7.8 fL (7.4-10.4); MONOCYTES % (AUTO) 6 % (2-9); NEUTROPHILS # (AUTO) 13.21 x10^3/uL (1.8-6.8); NEUTROPHILS % (AUTO) 82 % (42-75); PLATELET COUNT 215 x10^3/uL (130-400); RED BLOOD COUNT 4.43 x10^6/uL (3.82-5.3); RED CELL DISTRIBUTION WIDTH 14.5 % (9.6-15.2)
[2019-09-12 03:31] LABS: ANION GAP 7 mmol/L (5-15); CALCIUM 9.3 mg/dL (8.5-10.1); CHLORIDE 105 mmol/L (98-107); CREATININE 0.92 mg/dL (0.55-1.02)
[2019-09-12 03:35] LABS: TROPONIN I < 0.015 ng/mL (0.000-0.045)
[2019-09-12 07:16] VITALS: BP 159/82
[2019-09-12] MEDS ORDERED: REGADENOSON 0.4 MG/5 ML SYRINGE ONE (07:45)
[2019-09-12 08:08] LABS: HEMOGLOBIN A1C 5.7 % (4.2-6.3)
[2019-09-12] MEDS: PANTOPROZOLE 40MG TABLET PO SCH (10:29)
[2019-09-12] MEDS: CHOLECALCIFEROL 5,000u TAB PO SCH (10:29)
[2019-09-12] MEDS: ASPIRIN 325 MG TABLET PO SCH (10:29)
[2019-09-12] MEDS: MONTELUKAST 10 MG TABLET PO SCH (10:30)
[2019-09-12] MEDS: HYDROCHLOROTHIAZIDE 25 MG TABLET PO SCH (10:30)
[2019-09-12 11:02] LABS: TROPONIN I < 0.015 ng/mL (0.000-0.045)
[2019-09-12 12:22] LABS: MICROSCOPIC NOT IND
[2019-09-12 12:23] LABS: CULTURE INDICATED? NO
[2019-09-12 13:20] VITALS: BP 138/69
[2019-09-12 19:36] VITALS: BP 143/84
[2019-09-13 02:09] VITALS: BP 134/64
[2019-09-13 04:53] LABS: BASOPHILS # (AUTO) 0.09 x10^3/uL (0-0.1); BASOPHILS % (AUTO) 1 % (0-1); EOSINOPHILS # (AUTO) 0.22 x10^3/uL (0-0.4); EOSINOPHILS % (AUTO) 2 % (1-7); LYMPHOCYTES # (AUTO) 3.56 x10^3/uL (1-3.4); LYMPHOCYTES % (AUTO) 31 % (22-44); MD NO; MEAN CORPUSCULAR HEMOGLOBIN 32.8 pg (27.0-34.8); MEAN CORPUSCULAR HGB CONC 33.5 g/dL (32.4-35.8); MEAN CORPUSCULAR VOLUME 97.7 fL (80-100); MEAN PLATELET VOLUME 7.7 fL (7.4-10.4); MONOCYTES # (AUTO) 0.64 x10^3/uL (0.2-0.8); MONOCYTES % (AUTO) 6 % (2-9); NEUTROPHILS # (AUTO) 7.13 x10^3/uL (1.8-6.8); NEUTROPHILS % (AUTO) 61 % (42-75); PLATELET COUNT 249 x10^3/uL (130-400); RED BLOOD COUNT 4.97 x10^6/uL (3.82-5.3); RED CELL DISTRIBUTION WIDTH 14.9 % (9.6-15.2)
[2019-09-13 07:20] VITALS: BP 110/74
[2019-09-13] MEDS: HEPARIN 5,000 UNITS/ML, 1ML SQ SCH (09:04)
[2019-09-13] MEDS: ASPIRIN 325 MG TABLET PO SCH (09:04)
[2019-09-13] MEDS: HYDROCHLOROTHIAZIDE 25 MG TABLET PO SCH (09:04)
[2019-09-13] MEDS: LAMOTRIGINE 100 MG TABLET PO SCH (09:04)
[2019-09-13] MEDS: MONTELUKAST 10 MG TABLET PO SCH (09:04)
[2019-09-13] MEDS: CHOLECALCIFEROL 5,000u TAB PO SCH (09:04)
[2019-09-13] MEDS: CITALOPRAM 10 MG TABLET PO SCH (09:04)
[2019-09-13] MEDS: PANTOPROZOLE 40MG TABLET PO SCH (09:04)
[2019-09-13] MEDS ORDERED: OMEP-110 PO (09:13)
== END 2019-09-13 12:55 | disposition home or self-care (01) | DRG 872 ==
LOC: ED 22:29 → EDIP 22:34 → ED 22:38 → 5SO 23:55 → DCLOUNGE 09-13 12:53
PROVIDERS: ADMIT Family Medicine; ATTEND Internal Medicine
DX: A41.9 Sepsis, unspecified organism (principal); E78.5 Hyperlipidemia, unspecified; F31.9 Bipolar disorder, unspecified; F41.1 Generalized anxiety disorder; F51.04 Psychophysiologic insomnia; G40.909 Epilepsy, unspecified, not intractable, without status epilepticus; I12.9 Hypertensive chronic kidney disease with stage 1 through stage 4 chronic kidney disease, or unspecified chronic kidney disease; I25.10 Atherosclerotic heart disease of native coronary artery without angina pectoris; J44.9 Chronic obstructive pulmonary disease, unspecified; J45.20 Mild intermittent asthma, uncomplicated; K21.9 Gastro-esophageal reflux disease without esophagitis; Z66 Do not resuscitate; R73.9 Hyperglycemia, unspecified; A08.4 Viral intestinal infection, unspecified; N18.3 Chronic kidney disease, stage 3 (moderate); I25.2 Old myocardial infarction; Z79.82 Long term (current) use of aspirin; Z82.49 Family history of ischemic heart disease and other diseases of the circulatory system; Z83.3 Family history of diabetes mellitus; Z87.11 Personal history of peptic ulcer disease; Z90.49 Acquired absence of other specified parts of digestive tract; Z95.1 Presence of aortocoronary bypass graft; Z79.899 Other long term (current) drug therapy; Z91.040 Latex allergy status; Z88.8 Allergy status to other drugs, medicaments and biological substances; Z91.048 Other nonmedicinal substance allergy status
CPT/HCPCS: 36415; 71045; 78452; 80048; 80076; 81003; 82040; 83036; 83690; 84443; 84484; 85025; 87400; 93005; 93017; 99285; G0378; J1644; J2785; A9502

== ENCOUNTER 2020-01-07 07:00 | Inpatient (IN) | payer MEDICARE ==
[~2020-01-07] VITALS: Ht 162.6 cm; Wt 71.2 kg
[~2020-01-07 07:00] MED LIST changes: +ATOR40TA78 PO; +MONT10TA11 PO; -MONT10TA9 PO; +OMEP-110 PO; -TRAZ-137 PO; +TRAZ-175 PO; -ZONI100C2 PO; +ZONI100C29 PO; +ZONI50CA10 PO; -ZONI50CA2 PO
--- NOTE | 2020-01-07 07:12 | NUR ---
THIS IS A 69 YO F W/ C/O LOWER LEFT ABD AND SUPRAPUBIC PAIN X3 DAYS. TENDER TO PALPATION. DENIES N/V/D. LAST BM YESTERDAY. DENIES PAIN W/ URINATION. VS STABLE. PT AMBULATED TO THE BR W/ A STEADY GAIT. JOVITA ENRIQUE IN ROOM FOR EVAL. CALL LIGHT IN REACH. DENIES FURTHER NEEDS AT THIS TIME. AWAITING ORDERS.
[2020-01-07] MEDS ORDERED: MORPHINE SULFATE 4 MG/ML, 1ML ONE ×2 (07:17→08:53)
[2020-01-07] MEDS ORDERED: ONDANSETRON 2MG/ML, 2ML ONE (07:17)
[2020-01-07] MEDS ORDERED: SODIUM CHLORIDE FLUSH 10ML SYR IVF ONE (07:30)
[2020-01-07] MEDS ORDERED: ONDANSETRON 2MG/ML, 2ML IVPush ONE (07:30)
[2020-01-07 07:32] LABS: CULTURE INDICATED? YES; MICROSCOPIC INDICATED
[2020-01-07 07:37] LABS: BASOPHILS # (AUTO) 0.06 x10^3/uL (0-0.1); BASOPHILS % (AUTO) 0 % (0-1); EOSINOPHILS % (AUTO) 1 % (1-7); LYMPHOCYTES # (AUTO) 1.46 x10^3/uL (1-3.4); LYMPHOCYTES % (AUTO) 10 % (22-44); MD NO; MEAN CORPUSCULAR HEMOGLOBIN 33.5 pg (27.0-34.8); MEAN CORPUSCULAR HGB CONC 34.1 g/dL (32.4-35.8); MEAN CORPUSCULAR VOLUME 98.3 fL (80-100); MEAN PLATELET VOLUME 7.3 fL (7.4-10.4); MONOCYTES # (AUTO) 0.73 x10^3/uL (0.2-0.8); MONOCYTES % (AUTO) 5 % (2-9); NEUTROPHILS # (AUTO) 12.79 x10^3/uL (1.8-6.8); NEUTROPHILS % (AUTO) 85 % (42-75); PLATELET COUNT 256 x10^3/uL (130-400); RED CELL DISTRIBUTION WIDTH 14.7 % (9.6-15.2)
[2020-01-07] MEDS: MORPHINE SULFATE 4 MG/ML, 1ML IVPush PRN ×2 (07:37→08:54)
--- NOTE | 2020-01-07 07:38 | NUR ---
PIV STARTED, LABS DRAWN. PT MEDICATED PER EMAR. PLACED ON 2L NC AFTER O2 SATS DROPPED TO 88% AFTER MEDICATING. PT NOW 94%. GIVEN GLYCERIN SWABS FOR COMFORT. AWAITING RAD. CALL LIGHT IN REACH.
[2020-01-07 07:49] LABS: ALANINE AMINOTRANSFERASE 31 U/L (12-78); ALBUMIN 3.9 g/dL (3.4-5.0); ANION GAP 9 mmol/L (5-15); CALCIUM 9.4 mg/dL (8.5-10.1); CHLORIDE 105 mmol/L (98-107); CREATININE 0.98 mg/dL (0.55-1.02)
[2020-01-07 07:51] LABS: ALKALINE PHOSPHATASE 106 U/L (45-117); BILIRUBIN,TOTAL 1.1 mg/dL (0.2-1.0); TOTAL PROTEIN 7.6 g/dL (6.4-8.2)
--- NOTE | 2020-01-07 08:07 | NUR ---
PT REPORTS NO RELIEF OF PAIN W/ MEDS. WILL UPDATE PROVIDER.
--- NOTE | 2020-01-07 08:56 | NUR ---
PT MEDICATED PER EMAR. VS STABLE. PT RESTING ON [employer] W/ CALL LIGHT IN REACH. AWAITING CT.
--- NOTE | 2020-01-07 09:03 | NUR ---
PT TO CT.
--- NOTE | 2020-01-07 09:47 | NUR ---
TO ORDER BLOOD CULUTRES, THEN WILL GIVE ABX.
[2020-01-07] MEDS ORDERED: ONDANSETRON 2MG/ML, 2ML IVPush PRN (10:00)
[2020-01-07] MEDS ORDERED: metroNIDAZOLE 500 MG TABLET PO ONE (10:00)
[2020-01-07] MEDS ORDERED: HYDROmorphone 2 MG/ML, 1ML IVPush PRN (10:00)
[2020-01-07] MEDS ORDERED: CIPROFLOXACIN 500 MG TABLET PO ONE (10:00)
[2020-01-07] MEDS ORDERED: BUSPIRONE 10 MG TABLET PO PRN (10:00)
[2020-01-07] MEDS ORDERED: SODIUM CHLORIDE FLUSH 10ML SYR IVF PRN (10:00)
[2020-01-07] MEDS ORDERED: AMPICILLIN/SULBACTAM 1,500 MG in SODIUM CHLORIDE 0.9% 50 ML IV SCH (10:00)
[2020-01-07] MEDS ORDERED: ACETAMINOPHEN 325 MG TABLET PO PRN (10:00)
--- NOTE | 2020-01-07 10:18 | NUR ---
LAB IN ROOM DRAWING CULTURES.
[2020-01-07] MEDS: SODIUM CHLORIDE 0.9% 1,000 ML IV SCH ×2 (10:21→18:23)
[2020-01-07] MEDS ORDERED: metroNIDAZOLE 500 MG TABLET ONE (10:23)
[2020-01-07] MEDS ORDERED: CIPROFLOXACIN 500 MG TABLET ONE (10:23)
--- NOTE | 2020-01-07 10:32 | NUR ---
REPORT GIVEN TO IVETT LUCERO. PT IS READY FOR TRANSPORT.
[2020-01-07 10:47] VITALS: BP 112/69
[2020-01-07] MEDS: ENOXAPARIN 40 MG/0.4 ML SQ SCH (11:21)
[2020-01-07 13:49] VITALS: BP 108/67
[2020-01-07] MEDS: morphine SULFATE 10 MG/ML, 1ML IVPush PRN ×2 (16:01→22:00)
[2020-01-07] MEDS: AMPICILLIN/SULBACTAM 1,500 MG in SODIUM CHLORIDE 0.9% 50 ML IV SCH ×2 (16:09→22:01)
[2020-01-07 19:58] VITALS: BP 121/67
[2020-01-07] MEDS: CITALOPRAM 10 MG TABLET PO SCH (22:00)
[2020-01-07] MEDS: ATORVASTATIN 40 MG TABLET PO SCH (22:01)
[2020-01-07] MEDS: LAMOTRIGINE 100 MG TABLET PO SCH (22:01)
[2020-01-08 01:52] VITALS: BP 127/77
[2020-01-08] MEDS: SODIUM CHLORIDE 0.9% 1,000 ML IV SCH ×2 (03:55→16:06)
[2020-01-08] MEDS: AMPICILLIN/SULBACTAM 1,500 MG in SODIUM CHLORIDE 0.9% 50 ML IV SCH ×4 (03:55→20:53)
[2020-01-08 05:23] LABS: MEAN CORPUSCULAR HEMOGLOBIN 33.1 pg (27.0-34.8); MEAN CORPUSCULAR HGB CONC 33.7 g/dL (32.4-35.8); MEAN CORPUSCULAR VOLUME 98.3 fL (80-100); MEAN PLATELET VOLUME 7.6 fL (7.4-10.4); PLATELET COUNT 218 x10^3/uL (130-400); RED BLOOD COUNT 3.97 x10^6/uL (3.82-5.3); RED CELL DISTRIBUTION WIDTH 14.5 % (9.6-15.2)
[2020-01-08 05:25] LABS: ANION GAP 7 mmol/L (5-15); CALCIUM 8.5 mg/dL (8.5-10.1); CHLORIDE 105 mmol/L (98-107)
[2020-01-08 05:27] LABS: CREATININE 0.81 mg/dL (0.55-1.02)
[2020-01-08 05:57] LABS: BASOPHILS # (AUTO) 0.08 x10^3/uL (0-0.1); BASOPHILS % (AUTO) 1 % (0-1); EOSINOPHILS # (AUTO) 0.01 x10^3/uL (0-0.4); EOSINOPHILS % (AUTO) 0 % (1-7); LYMPHOCYTES # (AUTO) 1.49 x10^3/uL (1-3.4); LYMPHOCYTES % (AUTO) 9 % (22-44); MD SCAN; MONOCYTES # (AUTO) 1.21 x10^3/uL (0.2-0.8); MONOCYTES % (AUTO) 7 % (2-9); NEUTROPHILS # (AUTO) 13.53 x10^3/uL (1.8-6.8); NEUTROPHILS % (AUTO) 83 % (42-75)
[2020-01-08 07:47] VITALS: BP 104/59
[2020-01-08] MEDS: ASPIRIN 325 MG TABLET PO SCH (08:32)
[2020-01-08] MEDS: LAMOTRIGINE 100 MG TABLET PO SCH ×2 (08:33→20:54)
[2020-01-08] MEDS: OMEPRAZOLE 20 MG CAPSULE.DR PO SCH (08:34)
[2020-01-08] MEDS: CITALOPRAM 10 MG TABLET PO SCH ×2 (08:34→20:54)
[2020-01-08] MEDS: morphine SULFATE 10 MG/ML, 1ML IVPush PRN ×2 (08:35→12:31)
[2020-01-08] MEDS: ENOXAPARIN 40 MG/0.4 ML SQ SCH (11:08)
[2020-01-08 13:07] VITALS: BP 106/50
[2020-01-08 19:03] VITALS: BP 117/66
[2020-01-08] MEDS: ATORVASTATIN 40 MG TABLET PO SCH (20:54)
[2020-01-08] MEDS: OXYcodone/APAP 5/325MG TABLET PO PRN (23:08)
[2020-01-09 01:35] VITALS: BP 106/59
[2020-01-09] MEDS: AMPICILLIN/SULBACTAM 1,500 MG in SODIUM CHLORIDE 0.9% 50 ML IV SCH ×4 (04:15→22:16)
[2020-01-09 05:55] LABS: BASOPHILS # (AUTO) 0.04 x10^3/uL (0-0.1); BASOPHILS % (AUTO) 0 % (0-1); EOSINOPHILS # (AUTO) 0.21 x10^3/uL (0-0.4); EOSINOPHILS % (AUTO) 2 % (1-7); LYMPHOCYTES # (AUTO) 1.57 x10^3/uL (1-3.4); LYMPHOCYTES % (AUTO) 15 % (22-44); MD NO; MEAN CORPUSCULAR HEMOGLOBIN 32.9 pg (27.0-34.8); MEAN CORPUSCULAR HGB CONC 33.7 g/dL (32.4-35.8); MEAN CORPUSCULAR VOLUME 97.5 fL (80-100); MONOCYTES # (AUTO) 0.79 x10^3/uL (0.2-0.8); MONOCYTES % (AUTO) 8 % (2-9); NEUTROPHILS # (AUTO) 7.93 x10^3/uL (1.8-6.8); NEUTROPHILS % (AUTO) 75 % (42-75); PLATELET COUNT 208 x10^3/uL (130-400); RED BLOOD COUNT 3.69 x10^6/uL (3.82-5.3); RED CELL DISTRIBUTION WIDTH 14.5 % (9.6-15.2)
[2020-01-09 06:00] LABS: ALBUMIN 2.6 g/dL (3.4-5.0); ANION GAP 4 mmol/L (5-15); CALCIUM 8.4 mg/dL (8.5-10.1); CHLORIDE 107 mmol/L (98-107)
[2020-01-09 06:05] LABS: ALANINE AMINOTRANSFERASE 29 U/L (12-78); ALKALINE PHOSPHATASE 88 U/L (45-117); BILIRUBIN,TOTAL 0.4 mg/dL (0.2-1.0); CREATININE 0.69 mg/dL (0.55-1.02); TOTAL PROTEIN 5.8 g/dL (6.4-8.2)
[2020-01-09] MEDS: OXYcodone/APAP 5/325MG TABLET PO PRN (06:49)
[2020-01-09 07:48] VITALS: BP 97/58
[2020-01-09] MEDS: OMEPRAZOLE 20 MG CAPSULE.DR PO SCH (07:59)
[2020-01-09] MEDS: ASPIRIN 325 MG TABLET PO SCH (07:59)
[2020-01-09] MEDS: CITALOPRAM 10 MG TABLET PO SCH ×2 (07:59→19:59)
[2020-01-09] MEDS: LAMOTRIGINE 100 MG TABLET PO SCH ×2 (08:00→19:59)
[2020-01-09] MEDS: SODIUM CHLORIDE 0.9% 1,000 ML IV SCH ×2 (08:06→19:59)
[2020-01-09] MEDS: ENOXAPARIN 40 MG/0.4 ML SQ SCH (10:45)
[2020-01-09 14:48] VITALS: BP 98/57
[2020-01-09 19:18] VITALS: BP 136/72
[2020-01-09] MEDS: ATORVASTATIN 40 MG TABLET PO SCH (19:59)
[2020-01-09] MEDS ORDERED: HEMORRHOIDAL OINT, 28 GM (PREP H) RC PRN (20:30)
[2020-01-10 03:19] VITALS: BP 123/64
[2020-01-10] MEDS: AMPICILLIN/SULBACTAM 1,500 MG in SODIUM CHLORIDE 0.9% 50 ML IV SCH (03:53)
[2020-01-10 05:37] LABS: BASOPHILS # (AUTO) 0.04 x10^3/uL (0-0.1); BASOPHILS % (AUTO) 1 % (0-1); EOSINOPHILS # (AUTO) 0.21 x10^3/uL (0-0.4); EOSINOPHILS % (AUTO) 3 % (1-7); LYMPHOCYTES # (AUTO) 1.72 x10^3/uL (1-3.4); LYMPHOCYTES % (AUTO) 23 % (22-44); MD NO; MEAN CORPUSCULAR HEMOGLOBIN 32.5 pg (27.0-34.8); MEAN CORPUSCULAR HGB CONC 33.7 g/dL (32.4-35.8); MEAN CORPUSCULAR VOLUME 96.5 fL (80-100); MONOCYTES # (AUTO) 0.49 x10^3/uL (0.2-0.8); MONOCYTES % (AUTO) 7 % (2-9); NEUTROPHILS # (AUTO) 5.14 x10^3/uL (1.8-6.8); NEUTROPHILS % (AUTO) 68 % (42-75); PLATELET COUNT 228 x10^3/uL (130-400); RED BLOOD COUNT 3.58 x10^6/uL (3.82-5.3); RED CELL DISTRIBUTION WIDTH 14.2 % (9.6-15.2)
[2020-01-10 07:04] VITALS: BP 132/79
[2020-01-10] MEDS ORDERED: AMOX1TAB12 PO (08:06)
[2020-01-10] MEDS ORDERED: AMOXICILLIN/CLAV 875-125MG TABLET PO SCH (09:00)
[2020-01-10] MEDS: CITALOPRAM 10 MG TABLET PO SCH (09:56)
[2020-01-10] MEDS: OMEPRAZOLE 20 MG CAPSULE.DR PO SCH (09:56)
[2020-01-10] MEDS: LAMOTRIGINE 100 MG TABLET PO SCH (09:56)
[2020-01-10] MEDS: ENOXAPARIN 40 MG/0.4 ML SQ SCH (09:56)
[2020-01-10] MEDS: ASPIRIN 325 MG TABLET PO SCH (09:56)
== END 2020-01-10 13:55 | disposition home or self-care (01) | DRG 392 ==
LOC: ED 09:35 → EDIP 09:43 → ED 10:02 → 3N 10:43 → DCLOUNGE 01-10 13:46
PROVIDERS: ADMIT Internal Medicine Infectious Disease; ATTEND Internal Medicine Infectious Disease
DX: K57.32 Diverticulitis of large intestine without perforation or abscess without bleeding (principal); N30.00 Acute cystitis without hematuria; I12.9 Hypertensive chronic kidney disease with stage 1 through stage 4 chronic kidney disease, or unspecified chronic kidney disease; G40.909 Epilepsy, unspecified, not intractable, without status epilepticus; F41.1 Generalized anxiety disorder; I25.10 Atherosclerotic heart disease of native coronary artery without angina pectoris; E86.0 Dehydration; F31.9 Bipolar disorder, unspecified; N18.9 Chronic kidney disease, unspecified; K21.9 Gastro-esophageal reflux disease without esophagitis; J44.9 Chronic obstructive pulmonary disease, unspecified; I25.2 Old myocardial infarction; Z95.1 Presence of aortocoronary bypass graft; Z82.49 Family history of ischemic heart disease and other diseases of the circulatory system; Z91.040 Latex allergy status
CPT/HCPCS: 36415; 74021; 74177; 80048; 80053; 81001; 83605; 83690; 85025; 87040; 87086; 96374; 96375; 99285; G0378; J1650; J2405; J0295; J2270; J7030

== ENCOUNTER 2020-07-15 14:34 | Emergency (ER) | payer MEDICARE ==
[~2020-07-15] VITALS: Ht 162.6 cm; Wt 59.0 kg
[~2020-07-15 14:34] MED LIST changes: +AMOX1TAB12 PO
--- NOTE | 2020-07-15 14:53 | NUR ---
BIB EMS FOR SEIZURE ABOUT AN HOUR AGO. SHE CALLED NEPHEW WHO CALLED EMS. PATIENT HAS BEEN HAVING BREAK THROUGH SEIZURES FOR ABOUT ABOUT A MONTH. SHE HAS HAD FOUR. NO CHANGE IN MEDICINE. PATIENT IN GOWN. 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 20 G IV IN RIGHT FOREARM. CONTINOUS SPO2. [id number]. SIDERAILS UP X2. CALL LIGHT WITHIN REACH. AWAITING MD KEMP.
[2020-07-15 15:38] LABS: BASOPHILS # (AUTO) 0.03 x10^3/uL (0-0.1); BASOPHILS % (AUTO) 0 % (0-1); EOSINOPHILS # (AUTO) 0.12 x10^3/uL (0-0.4); EOSINOPHILS % (AUTO) 1 % (1-7); LYMPHOCYTES # (AUTO) 3.17 x10^3/uL (1-3.4); LYMPHOCYTES % (AUTO) 29 % (22-44); MD NO; MEAN CORPUSCULAR HEMOGLOBIN 32.2 pg (27.0-34.8); MEAN CORPUSCULAR HGB CONC 33.3 g/dL (32.4-35.8); MEAN CORPUSCULAR VOLUME 96.7 fL (80-100); MEAN PLATELET VOLUME 7.7 fL (7.4-10.4); MONOCYTES # (AUTO) 0.59 x10^3/uL (0.2-0.8); MONOCYTES % (AUTO) 5 % (2-9); NEUTROPHILS # (AUTO) 6.98 x10^3/uL (1.8-6.8); NEUTROPHILS % (AUTO) 64 % (42-75); PLATELET COUNT 246 x10^3/uL (130-400); RED BLOOD COUNT 4.85 x10^6/uL (3.82-5.3)
[2020-07-15 15:49] LABS: ALANINE AMINOTRANSFERASE 40 U/L (12-78); ALBUMIN 4.3 g/dL (3.4-5.0); ANION GAP 7 mmol/L (5-15); CALCIUM 10.1 mg/dL (8.5-10.1); CHLORIDE 110 mmol/L (98-107)
[2020-07-15 15:52] LABS: ALKALINE PHOSPHATASE 98 U/L (45-117); BILIRUBIN,TOTAL 0.6 mg/dL (0.2-1.0)
--- NOTE | 2020-07-15 15:58 | NUR ---
GAVE REPORT TO CORY Castellano
--- NOTE | 2020-07-15 16:01 | NUR ---
Pt resting in room, nadn. PACK
--- NOTE | 2020-07-15 16:22 | NUR ---
Mele gonzalez in [facility] - 07/15/20 at 1636 by [email or web address] neuro called @[phone]
[2020-07-15 16:23] VITALS: BP 141/66
--- NOTE | 2020-07-15 16:25 | NUR ---
Mele gonzalez in [facility] - 07/15/20 at 1636 by [email or web address] neuro ilya back @ [phone]
[2020-07-15] MEDS ORDERED: ALBUTEROL/IPRATROPIUM 2.5MG/0.5MG, 3 ML ONE (16:29)
[2020-07-15] MEDS ORDERED: ALBUTEROL/IPRATROPIUM 2.5MG/0.5MG, 3 ML NPPB ONE (16:30)
--- NOTE | 2020-07-15 16:35 | NUR ---
pT REPORTS SHE FEELS SOB AND USUALLY TAKES HER HOME ALBUTEROL WHEN SHE DOES. NEB TREATMENT PROVIDED AND RN WORE N100 MASK DURING ADMIN.
--- NOTE | 2020-07-15 16:40 | NUR ---
neuro is contacted @ [phone]
--- NOTE | 2020-07-15 17:01 | NUR ---
was attempted to be reach again for neuro consult @[phone]
--- NOTE | 2020-07-15 17:20 | NUR ---
was paged again @[phone]
--- NOTE | 2020-07-15 17:24 | NUR ---
Neuro called back @[phone].
--- NOTE | 2020-07-15 17:54 | NUR ---
Patient/Caregiver given discharge instructions and they have confirmed that they understand the instructions. Patient ambulatory with steady gait.
== END 2020-07-15 18:05 | disposition home or self-care (01) ==
LOC: ED 15:18
DX: S50.311A Abrasion of right elbow, initial encounter (principal); G40.209 Localization-related (focal) (partial) symptomatic epilepsy and epileptic syndromes with complex partial seizures, not intractable, without status epilepticus; I51.7 Cardiomegaly; Z79.899 Other long term (current) drug therapy; X58.XXXA Exposure to other specified factors, initial encounter; Y93.89 Activity, other specified; Y92.89 Other specified places as the place of occurrence of the external cause; Y99.8 Other external cause status
CPT/HCPCS: 36415; 70450; 80053; 85025; 93005; 94640; 99285